=== PATIENT | female | born 1940 | race Caucasian/White ===

== ENCOUNTER → 2017-12-27 | Day surgery (SDC) | payer MEDICARE ==
[~2017-12-27] MED LIST: AMLODIPINE BESY10 MG PO; ATORVASTATIN PO; FENTANYL CITRATE/PF 100MCG/2 ML INJ ONE; GEODON80 MG PO; HYDRALAZINE HCL50 MG PO; LITHIUM CARBON300 M2 PO; MIDAZOLAM HCL 2 MG/2 ML VIAL ONE; OR PHACO EYE KIT ONE; PREOP PHACO EYE KIT ONE; PROZAC10 MG PO
== END | disposition home or self-care (01) ==
LOC: OR 09:13
PROVIDERS: ATTEND Ophthalmology
DX: H25.11 Age-related nuclear cataract, right eye (principal); I10 Essential (primary) hypertension; E78.5 Hyperlipidemia, unspecified; F31.9 Bipolar disorder, unspecified
CPT/HCPCS: 66984; J2250; V2632

== ENCOUNTER → 2018-01-10 | Day surgery (SDC) | payer MEDICARE ==
[~2018-01-10] MED LIST changes: -OR PHACO EYE KIT ONE; -PREOP PHACO EYE KIT ONE
== END | disposition home or self-care (01) ==
LOC: OR 10:38
PROVIDERS: ATTEND Ophthalmology
DX: H25.12 Age-related nuclear cataract, left eye (principal); I10 Essential (primary) hypertension; F41.9 Anxiety disorder, unspecified; F31.9 Bipolar disorder, unspecified; Z87.440 Personal history of urinary (tract) infections; Z98.41 Cataract extraction status, right eye; Z96.1 Presence of intraocular lens
CPT/HCPCS: 66984; J2250